=== PATIENT | male | born 1950 | race Caucasian/White ===

== ENCOUNTER 2024-11-01 06:55 | Day surgery (SDC) | payer OTHER, SELFPAY ==
[2024-11-01] VITALS (15 sets, daily range): BP systolic 102–138; BP diastolic 61–88; BMI 25.8
[2024-11-01] MEDS: LOW STRENGTH ASPIRIN 324 MG PO (07:46)
--- NOTE | 2024-11-01 09:26 | ITS.CL.CATH ---
Underwriting Operations Manager - Catheterization
Cardiac Catheterization
Procedure Report:
LEFT HEART CATHETERIZATION
Date of Procedure: November 01, 2024
Primary Care Physician: Dr. Eliezer Woods
Primary Reinforcement Maker: Dr. Enrique Cardoso
Procedures performed:
1: Coronary angiography
2: Left ventricular hemodynamic assessment
3: Left ventriculography
INDICATION: The patient is a 74-year-old man with a past medical history significant for COPD and atrial fibrillation who was admitted to [facility] earlier this month with increasing weakness and shortness of breath in the setting of atrial
fibrillation with rapid ventricular response. Echo performed on October 16 showed severe LV systolic dysfunction with a visually estimated ejection fraction of 25 to 30%, LV dilation, severe left atrial dilation, and combined aortic valve disease
with mild aortic regurgitation and at least mild to moderate aortic stenosis. In light of his drop in EF and new heart failure he is referred for coronary angiography. [facility] was held for the procedure. He reports feeling much better. He has no
typical angina despite working a fairly physical job.
ACCESS: The patient was prepped and draped in usual sterile fashion. A 6 Bahamian sheath was placed in the right radial artery using the Seldinger over the wire technique.
HEMODYNAMIC FINDINGS (mmHg):
LV(s/d,EDP): 124/8, 14
Ao(s/d,m): 100/62, 78
VALVE HEMODYNAMICS with simultaneous pressure measurement:
Aortic Valve
peak to peak gradient (mmHg): 28
mean gradient (mmHg): 23
ANGIOGRAPHIC FINDINGS:
Single-plane Left Ventriculography performed in the JONES projection: Severe global LV systolic dysfunction with a visually estimated ejection fraction of 30 to 35%. The left ventricle appears dilated. There is no significant mitral regurgitation.
Heavy calcification of the aortic valve is noted.
Coronary Angiography:
Dominance: Right
Left Main: Left main coronary artery was engaged with a 6 Bahamian JL 4. This seems to have a very anterior takeoff. The left main is widely patent.
Left Anterior Descending: The left anterior descending artery is a medium to large caliber vessel that gives rise to 2 relatively large diagonal branches. These vessels appear widely patent with mild luminal irregularities and no focal obstructive
disease.
Left Circumflex: The left circumflex is a medium caliber vessel that gives rise to 2 major obtuse marginal branches. There is a smooth 40 to 50% stenosis in the mid circumflex just before the takeoff of the first obtuse marginal branch. OM1 is a
large-caliber vessel that is widely patent. The circumflex terminates in a smaller second obtuse marginal branch that is also widely patent with normal flow.
Right Coronary: The right coronary artery is a medium caliber dominant vessel that gives rise to a large caliber posterior descending artery and small PLV branch system. The right coronary artery is moderately calcified throughout the AV groove.
There are 2 tandem smooth 40 to 50% stenoses in the mid RCA. The distal vessels appear angiographically normal with normal flow.
Fluoroscopy Time (min): 11.3
Radiation Dose (mGy): 584
DAP (Gy.cm2): 43
Closure device: None. A TR band applied at the right wrist.
Complications: None
ASSESSMENT:
1: Two-vessel nonobstructive coronary artery disease.
2: Severe LV systolic dysfunction with fairly compensated filling pressures.
3: At least moderate and possibly severe aortic stenosis with low gradients in the setting of severely depressed ejection fraction.
CONCLUSIONS and RECOMMENDATIONS:
1: Formal evaluation by the [facility] valve team for possible TAVR. His gradients are certainly fairly low however the combination of aortic insufficiency in the setting of LV dysfunction with LV dilation makes me concerned that the valve may be
playing more of a role in his clinical presentation. Certainly atrial fibrillation is also playing a major role. He certainly is feeling better back in normal sinus rhythm today and has fairly well compensated filling pressures on medical therapy.
2: Close clinical follow-up with Dr. Cardoso as scheduled.
Theo Felix M.D.
Copy to: Dr. Eliezer Woods
--- NOTE | 2024-11-01 11:37 | CONSULT.STRU ---
Consultation
-
Date/Time Consultation Requested: 11/01/2024
Date/Time Consultation Performed: 11/01/2024
Requesting Provider: Dr. Felix
Performing Provider: SADE Vazquez
Reason for Consultation: Aortic stenosis, low flow-low gradient/ TAVR evaluation
Patient History
Physicians
Family Physician: Dr. Eliezer Woods
Outpatient Mechanical Equipment Sales Engineer: Dr. Enrique Cardoso
Primary Mechanical Equipment Sales Engineer: Dr. Enrique Cardoso
History of Present Illness
Mr. Lee has a hx of PAF, cardiomyopathy (10/16/2024 echo with LVEF 25-30%), COPD, BPH and HLD. He had a recent admission to [facility] 10/14/24-10/16/24 for PAF with RVR@127 bpm in the setting of URI and severe diarrhea. He went back into [facility] 10/16/24.
Since that admission he feels LISA with walking, though feels improved compared to the time of hospitalization. Otherwise denies CP, palpitations, lightheadedness, LE edema, PND or orthopnea. Prior to his recent hospitalization he was very active. He
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 His most recent echo from 10/16/2024 had AV PG/M.1/17.7, DILMA: 0.66 with dimensionless index of 0.21. He has mild AI
and mild MR. EF is 25-30%. He underwent cardiac cath today and was founf ro have a peak to peak MG of 28 and two vessel non-obstructive CAD.
Reviewed the pathophysiology of aortic stenosis with the patient and his . Explained the treatment options of SAVR and TAVR. Explained the TAVR evaluation process including follow up BMP, CT TAVR scan, CT surgery consult and Heart Team
discussion. Provided with script for BMP next week, script and appointment for CT TAVR, Consult appointment with Dr. Barbosa and a copy of the TAVR education booklet with contact information. Allowed for and answered questions.
Past Medical History
Past Medical History: Atrial Fib (paroxysmal), BPH (h/o radiation treatment), CHF (combined systolic and diastolic), COPD, LISA, Hypercholesterolemia, Radiation (prostate), Valvular Disease (Aortic stenosis, mild AI, moderate MAC, mild MR) and Other
(cardiomyopathy, abdominal hernia)
Past Surgical History
Past Surgical History: Other (lap. hernia repair, small bowel resection, history of bilateral inguinal hernia repair)
Dental History
Regular dental care, Dr. Sanchez in [place], [place]. Last visit this week.
Family History
Mother: at Age (92yo, brain aneurysm)
Father: at Age (88yo, CVA)
Social History
Alcohol: Occasional
Drug: None
Tobacco: Former Smoker
Personal:
Living: With Spouse
Employment: Employed (mechanical maintenance technician)
Allergies
Allergy/AdvReac Type Severity Reaction Status Date / Time
No Known Allergies Allergy Unverified 11/01/24 07:25
Home Medications
�Medication �Instructions �Recorded �Confirmed �Type
acetaminophen 325 mg capsule 650 mg PO Q4H PRN pain 11/01/24 11/01/24 History
albuterol sulfate 90 mcg/actuation 1 puff inhalation ONCE 11/01/24 11/01/24 History
aerosol inhaler
apixaban 5 mg tablet (Eliquis) 5 mg PO BID 11/01/24 11/01/24 History
atorvastatin 10 mg tablet 10 mg PO DAILY 11/01/24 11/01/24 History
dextromethorphan-guaifenesin 30 2 tab PO Q12H 11/01/24 11/01/24 History
mg-600 mg tablet extended
hr (Mucinex DM)
fluticasone furoate 200 1 inh inhalation DAILY 11/01/24 11/01/24 History
mcg-vilanterol 25 mcg/dose
inhalation powder
furosemide 40 mg tablet 40 mg PO DAILY 11/01/24 11/01/24 History
metoprolol succinate 25 mg 25 mg PO BID 11/01/24 11/01/24 History
tablet,extended release 24 hr
pantoprazole 20 mg tablet,delayed 20 mg PO DAILY 11/01/24 11/01/24 History
release
spironolactone 25 mg tablet 25 mg PO DAILY 11/01/24 11/01/24 History
tamsulosin 0.4 mg capsule 0.4 mg PO DAILY 11/01/24 11/01/24 History
STS%
STS %: 1.57%
Review of Systems
-
History Source: Patient and Family
General: Reports Weight Loss (18 pounds since recent hospitalization); Denies Fever or Fatigue
HEENT: Reports No Symptoms
Respiratory: Reports LISA (since recent hospitalization earlier this month)
Cardiac: Reports CAD and Known Vascular Disease (aortic stenosis); Denies Chest Pain, Palpitations, Nausea, Vomiting or Edema
Abdomen/GI: Reports Diarrhea (recent requiring hospitalization but none since discharge) and Other (large abdominal hernia)
: Reports No Symptoms; Denies Dysuria, Frequency, Urgency or Hematuria
Musculoskeletal: Reports No Symptoms; Denies Edema
Skin: Reports No Symptoms
Neurological: Reports Dizzy (says he has orthostatic hypotension); Denies CVA, TIA or Headaches
Vascular: Reports No Symptoms; Denies Claudication
Physical Exam
Vital Signs
Temp 97.8 F 11/01/24 07:49
Temp route: Oral 11/01/24 07:49
Pulse 88 11/01/24 07:49
Resp Rate 20 11/01/24 07:49
Blood pressure 138/88 11/01/24 07:49
Blood pressure extremity used: Left upper arm 11/01/24 09:32
Position: Lying 11/01/24 09:02
SaO2 98 11/01/24 07:49
Oxygen Mode of Delivery Room air 11/01/24 10:47
Can the patient verbally communicate their pain? Yes 11/01/24 10:47
Actual Weight 83.915 kg 11/01/24 07:12
Body Mass Index (BMI) 25.8 11/01/24 07:12
Labs
10/16/2024 [facility]:
WBC: 8.3
H/H: 13.2/39.1
Platelets: [id number]
BUN: 13
Creat: 0.84
GFR: 90
Diagnostic Studies
10/14/2024 Echocardiogram ([facility]):
SUMMARY
1. Left ventricular ejection fraction, by visual estimation, is 25 to 30%.
2. Estimated left ventricular ejection fraction is moderately reduced.
3. Moderately increased left ventricular internal cavity size by (5.98 cm/ 2.93 cm/m2).
4. Mild concentric left ventricular hypertrophy.
5. Grade 2 LV diastolic dysfunction, pseudonormal pattern.
6. Right ventricular cavity size is borderline dilated with normal systolic function. (TAPSE 2.1 cm).
7. Severely dilated left atrium by volume index 51.1 mL/m2.
8. Normal right atrium by area 16.9 cm2.
9. Right atrial pressure of (8 mmHg), the estimated right ventricular systolic pressure is normal at (25.9 mmHg).
10. Inferior vena cava normal in size (>2.1 cm) + greater than 50% variably consistent with elevated right atrial pressures (8 mmHg).
11. Mild aortic valve stenosis. Mild aortic regurgitation.
12. AoV velocity of 2.70 m/s; Peak aortic valve gradient = 29.1 mmHg; Mean gradient = 17.7 mmHg; AoV Area by continuity equation = 0.66 cm2; AoV Dimensionless Index = 0.21.
13. There is severe thickening of the posterior leaflet of the mitral valve. Moderate mitral annular calcification.
14. Mild mitral valve regurgitation is seen.
15. Compared to prior 01-18-, LVEF is slightly worse.
16. Multiple segmental abnormalities exist. See findings.

PHYSICIAN INTERPRETATION
Left Ventricle:
Definity Intravenous contrast was given for enhancement of the left ventricular endocardial borders. The left ventricular internal cavity size was moderately increased. There is mild concentric left ventricular hypertrophy. The estimated left
ventricular ejection fraction is moderately reduced. There was Grade 2 LV diastolic dysfunction, pseudonormal pattern. Left ventricular ejection fraction, by visual estimation, is 25 to 30%.
LV Wall Scoring:
The entire anterior wall is akinetic. The RCA distribution, entire lateral
wall, entire septum, and apex are hypokinetic.
Right Ventricle:
The right ventricular cavity size is borderline dilated. The right ventricular systolic function is within normal limits. The tricuspid regurgitant velocity predicts an estimated right ventricular systolic pressure of 25.9 mmHg.
Left Atrium:
The left atrium is severely dilated by volume index 51.1 mL/m2.
Right Atrium:
Right atrium is normal by area 16.9 cm2.
Inferior vena cava normal in size (>2.1 cm) + greater than 50% variably consistent with elevated right atrial pressures (8 mmHg).
Interatrial Septum:
Interatrial and interventricular septa appear intact, with no obvious evidence of intracardiac shunting by spectral or color Doppler.
Aortic Valve:
Doppler findings and somewhat restricted movement of the aortic valve cusps are consistent with mild aortic stenosis. The peak aortic valve gradient is 29.1 mmHg. The mean aortic valve gradient is 17.7 mmHg. The peak aortic velocity was obtained
from the apical view. There is mild aortic regurgitation.
Mitral Valve:
There is moderate mitral annular calcification. There is severe thickening of the posterior leaflet of the mitral valve. The mean mitral valve gradient is 4.2 mmHg. The calculated mitral valve area is 6.10 cm�, using a pressure half-time of 36
msec. Mild mitral valve regurgitation is seen.
Tricuspid Valve:
There is mild tricuspid valve regurgitation. The tricuspid regurgitant velocity is (2.12 m/s), and with an assumed right atrial pressure of (8 mmHg), the right ventricular systolic pressure is normal (25.9 mmHg).
Pulmonary Valve:
The pulmonary valve is normal in structure and function, with good leaflet excursion, and without any evidence of pulmonary stenosis or significant regurgitation.
Aorta:
The aorta, from all segments that were visualized, appears normal in dimension, with no evidence of dilatation or obstruction. Aortic sinus (3.72 cm/ BSA indexed 1.8 cm/m2), Aortic ST junct (3.6 cm/ BSA indexed 1.7 cm/m2),.
11/01/2024 Cardiac Cath:
HEMODYNAMIC FINDINGS (mmHg):
LV(s/d,EDP): 124/8, 14
Ao(s/d,m): 100/62, 78
VALVE HEMODYNAMICS with simultaneous pressure measurement:
Aortic Valve
peak to peak gradient (mmHg): 28
mean gradient (mmHg): 23
ANGIOGRAPHIC FINDINGS:
Single-plane Left Ventriculography performed in the JONES projection: Severe global LV systolic dysfunction with a visually estimated ejection fraction of 30 to 35%. The left ventricle appears dilated. There is no significant mitral regurgitation.
Heavy calcification of the aortic valve is noted.
Coronary Angiography:
Dominance: Right
Left Main: Left main coronary artery was engaged with a 6 Greek JL 4. This seems to have a very anterior takeoff. The left main is widely patent.
Left Anterior Descending: The left anterior descending artery is a medium to large caliber vessel that gives rise to 2 relatively large diagonal branches. These vessels appear widely patent with mild luminal irregularities and no focal obstructive
disease.
Left Circumflex: The left circumflex is a medium caliber vessel that gives rise to 2 major obtuse marginal branches. There is a smooth 40 to 50% stenosis in the mid circumflex just before the takeoff of the first obtuse marginal branch. OM1 is a
large-caliber vessel that is widely patent. The circumflex terminates in a smaller second obtuse marginal branch that is also widely patent with normal flow.
Right Coronary: The right coronary artery is a medium caliber dominant vessel that gives rise to a large caliber posterior descending artery and small PLV branch system. The right coronary artery is moderately calcified throughout the AV groove.
There are 2 tandem smooth 40 to 50% stenoses in the mid RCA. The distal vessels appear angiographically normal with normal flow.
ASSESSMENT:
1: Two-vessel nonobstructive coronary artery disease.
2: Severe LV systolic dysfunction with fairly compensated filling pressures.
3: At least moderate and possibly severe aortic stenosis with low gradients in the setting of severely depressed ejection fraction.
CONCLUSIONS and RECOMMENDATIONS:
1: Formal evaluation by the [facility] valve team for possible TAVR. His gradients are certainly fairly low however the combination of aortic insufficiency in the setting of LV dysfunction with LV dilation makes me concerned that the valve may be
playing more of a role in his clinical presentation. Certainly atrial fibrillation is also playing a major role. He certainly is feeling better back in normal sinus rhythm today and has fairly well compensated filling pressures on medical therapy.
2: Close clinical follow-up with Dr. Cardoso as scheduled.
Exam
General: Well Developed, Well Nourished, No Apparent Distress and Comfortable
HEENT: Moist Mucous Membranes, PERRLA and EOMI
Neck: Trachea Midline; Negative JVD
Respiratory: Clear; Negative Wheezes, Crackles or Rhonchi
Cardiac: S1/S2 and Regular Rhythm
GI: Soft, Non Tender, Normal Bowel Sounds and Other (large abdominal hernia)
Rectal: Deferred by Provider
Skin: Warm and Dry
Neuro: AO x 3, No Motor Deficits and Nonfocal/Grossly Intact
Extremities: Pulses (+2 PT pulse, +1 dp pulse bilaterally); Negative Lower Level Edema
Psych: Calm
Assessment / Plan
-
Procedure Type:�Isolated AVR
Perioperative Outcome Estimate %
Operative Mortality 1.57%
Morbidity & Mortality 8.34%
Stroke 0.965%
Renal Failure 1.06%
Reoperation 3.76%
Prolonged Ventilation 4.52%
Deep Sternal Wound Infection 0.051%
Long Hospital Stay (>14 days) 5.46%
Short Hospital Stay (<6 days)* 36.6%
Severe Aortic stenosis:
����������� Continue evaluation for aortic stenosis as outpatient
����������� BMP next week
����������� CT TAVR scan 11/16/2024 at
����������� CT surgery consult with Dr. Barbosa 11/21/2024
����������� Dental Clearance
����������� Heart team discussion at [facility]
Data Reviewed
-
EKG: Report Reviewed by me
Ornamental Brick Installer: Report Reviewed by me, Discussed with Physician, Discussed with Patient and Discussed with Family
Echo: Report Reviewed by me, Discussed with Physician, Discussed with Patient and Discussed with Family
Labs: Labs Reviewed by me
Old Records: Reviewed (Cardiology notes)
Total Time Spent with Patient (in minutes): 30
== END 2024-11-01 12:22 | disposition home or self-care (01) ==
LOC: CATH 06:55
PROVIDERS: ATTENDING PHYSICIAN Internal Medicine Interventional Cardiology; FAMILY PHYSICIAN Family Medicine; OTHER PHYSICIAN Internal Medicine Cardiovascular Disease
DX: I08.3 Combined rheumatic disorders of mitral, aortic and tricuspid valves (principal); I25.10 Atherosclerotic heart disease of native coronary artery without angina pectoris; N40.0 Benign prostatic hyperplasia without lower urinary tract symptoms; J44.9 Chronic obstructive pulmonary disease, unspecified; I42.9 Cardiomyopathy, unspecified; I48.0 Paroxysmal atrial fibrillation; Z90.49 Acquired absence of other specified parts of digestive tract; E78.00 Pure hypercholesterolemia, unspecified; I50.40 Unspecified combined systolic (congestive) and diastolic (congestive) heart failure; Z87.891 Personal history of nicotine dependence; Z82.3 Family history of stroke; Z79.01 Long term (current) use of anticoagulants; Z79.899 Other long term (current) drug therapy
CPT/HCPCS: 93458; C1769; C1894; Q9967

== ENCOUNTER → 2024-11-16 08:53 | Outpatient (REF) | payer OTHER, SELFPAY | LOC: RAD 08:53 | PROVIDERS: ATTENDING PHYSICIAN Nurse Practitioner Adult Health; FAMILY PHYSICIAN Family Medicine | DX: I35.0 Nonrheumatic aortic (valve) stenosis (principal) | CPT/HCPCS: 74174; 75572; Q9967 ==

== ENCOUNTER 2025-02-01 05:00 | Inpatient (IN) | payer OTHER, SELFPAY ==
[2025-01-23 08:38] VITALS: BMI 28.6
--- NOTE | 2025-01-23 09:00 | HPS.HSE ---
Family Physician
-
Family Physician: Eliezer Woods
Cardiology: Enrique Cardoso
Chief Complaint
-
LISA
Pre-operative history and physical
History of Present Illness
Mr. Lee is a pleasant 74 yom with a past medical history significant for , PAF, cardiomyopathy (10/16/2024 echo with LVEF 25-30%), COPD, BPH and HLD. He had a recent admission to [facility] 10/14/24-10/16/24 for PAF with RVR@127 bpm in the setting of URI
and severe diarrhea. He went back into [facility] 10/16/24. Since that admission he feels mild LISA with walking, though feels improved compared to the time of hospitalization. He also has noticed some increased fatigue but has been trying to stay active.
Otherwise denies CP, palpitations, lightheadedness, LE edema, PND or orthopnea. Prior to his recent hospitalization he was very active. 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
with no symptoms. His most recent echo from 10/16/2024 is notable for �AV PG/M.1/17.7, DILMA: 0.66 with dimensionless index of 0.21, mild AI and mild MR. EF is 25-30%. He underwent cardiac catheterization on 11/01/2024 and was found to have an
invasive peak to peak MG of 28 and two vessel non-obstructive CAD
Medical History
Past Medical History
Past Medical History: Reports Arrhythmia (paroxysmal a-fib), Cancer (prostate), COPD and Valvular Disease (severe , mild AI, mild MR, mild TR)
Past Surgical History: Reports Other (small bowel resection, lap hernia repair 2018, bilateral inguinal hernia repair 2008)
Social History
Tobacco: Former Smoker
Alcohol: Occasional
Drug: None
Personal:
Living: With Family
Employment: Employed (helper maintenance cleaning)
Family History
Family History: Not pertinent
Allergies / Home Medications
Allergies reflects when Allergies were last updated in [employer].
Home Medications with original date entered in [employer]
Allergy/Medication List:
Allergies:
NKDA
Medications:
Albuterol Sulfate HFA 108 (90 Base) MCG/ACT Aerosol Solution 1 puff as needed Inhalation every 4 hrs
Apixaban 5 MG Tablet 1 tablet Orally Twice a day
Atorvastatin Calcium 10 MG Tablet 1 tablet Orally Once a day
Breo Ellipta(Fluticasone Furoate-Vilanterol) 200-25 MCG/ACT Aerosol Powder Breath Activated 1 puff Inhalation Once a day
Metoprolol Succinate ER 25 MG Tablet Extended Release 24 Hour 1 tablet Orally Once a day
Metoprolol Succinate ER 25 MG Tablet Extended Release 24 Hour 1 tablet Orally twice a day
Mucinex(guaiFENesin ER) 600 MG Tablet Extended Release 12 Hour 1 tablet as needed Orally every 12 hrs
Pantoprazole Sodium 20 MG Tablet Delayed Release 1 tablet Orally Once a day
Spironolactone 25 MG Tablet 1 tablet Orally
Tamsulosin HCl 0.4 MG Capsule 1 capsule Orally Once a day
Review of Systems
-
History Source: Patient
Constitutional: Reports Fatigue (mild)
EENT: Reports No Symptoms
Respiratory: Reports Cough (only in morning, productive with kelly mucous.)
Cardiac: Reports No Symptoms; Denies Chest Pain, Palpitations or Syncope
Abdomen/GI: Reports No Symptoms; Denies Abdominal Pain, Nausea or Vomiting
: Reports No Symptoms; Denies Dysuria
Musculoskeletal: Reports No Symptoms
Skin: Reports No Symptoms
Neurological: Reports No Symptoms
Endocrine: Reports No Symptoms
Hematologic/Lymphatic: Reports No Symptoms
Psych: Reports No Symptoms
Physical Exam
Physical Exam
General: Well Developed, Well Nourished and No Apparent Distress
HEENT: NormoCephalic and PERRLA
Respiratory: Clear; No Wheezes, Rales or Rhonchi
Cardiac: S1/S2, Regular Rhythm and Murmur (Grade I/ JUNO); No Peripheral Edema
Breast: Deferred by me
GI: Soft, Non Tender, Non Distended and Normal Bowel Sounds
Rectal: Deferred by Provider
Genito-urinary: Deferred by me
Musculoskeletal: No Clubbing, No Cyanosis and No Edema
Skin: Warm and Dry
Neuro: AO x 3 and Nonfocal/grossly intact
Psych: Calm
Data Reviewed
-
Diagnostic Radiology: Report Reviewed by me
CT Scan: Report Reviewed by me and Discussed with Physician
Medical Tests (Nuc Med, Echo, EKG etc): Report Reviewed by me
Lab Data: Labs Reviewed by me
Old Records: Reviewed
Impression/Plan
-
IMPRESSION:
Severe Aortic Stenosis
PLAN:
- TF TAVR utilizing 29mm S3 valve
- Last dose of Eliquis 01/29, ASA 324mg 01/30, 81mg 01/31, 02/01. Will resume Eliquis post procedure
- POD #1/#30 echocardiogram
- Cardiac rehab consult
- Prophylactic abx with dental procedure, regular dental care
Labs
-
Labs:
WBC 7.8 10^3/uL (4.8-10.8) 01/23/25 08:56
RBC 4.91 10^6/uL (4.70-6.10) 01/23/25 08:56
Hgb 15.0 g/dL (13.0-18.0) 01/23/25 08:56
Hct 43.4 % (39.0-52.0) 01/23/25 08:56
Plt Count 207 10^3/uL (130-400) 01/23/25 08:56
Sodium 140 mmol/L (135-145) 01/23/25 08:56
Potassium 4.1 mmol/L (3.5-5.1) 01/23/25 08:56
Chloride 105 mmol/L (98-107) 01/23/25 08:56
Carbon Dioxide 30 mmol/L (22-30) 01/23/25 08:56
BUN 14 mg/dl (9-20) 01/23/25 08:56
Creatinine 0.8 mg/dL (0.7-1.3) 01/23/25 08:56
eGFR > 60.00 01/23/25 08:56
Glucose 87 mg/dl (70-99) 01/23/25 08:56
Calcium 9.4 mg/dl (8.4-10.2) 01/23/25 08:56
Xkw-T-Trrvrpzfhmg Pept 3370 pg/ml 01/23/25 08:56
Albumin 4.3 g/dl (3.5-5.0) 01/23/25 08:56
[2025-01-23 09:23] LABS: % Basophils 0.5 % (0-2); % Eosinophils 1.4 % (0-6); % Immature Granulocytes 0.8 % (0-0.5); % Lymphocytes 15.9 % (20.5-51.1); % Monocytes 8.8 % (1.7-9.3); % Neutrophils 72.6 % (42.2-75.2); Absolute Eosinophils 0.1 10^3/uL (0-0.7); Absolute Immature Granulocytes 0.1 10^3/uL (0-0.05); Absolute Lymphocytes 1.2 10^3/uL (1.2-3.4); Absolute Monocytes 0.7 10^3/uL (0.1-0.6); Absolute Neutrophils 5.6 10^3/uL (1.4-6.5); Hematocrit 43.4 % (39.0-52.0); Mean Corp Hgb Conc. 34.6 g/dL (33.0-37.0); Mean Corpuscular Hgb 30.5 pg (27.0-31.0); Mean Corpuscular Volume 88.4 fL (80.0-94.0); Mean Platelet Volume 10.1 fL (7.4-10.4); Nucleated Red Blood Cells % 0 % (-); Platelet Count 207 10^3/uL (130-400); Red Blood Cell Count 4.91 10^6/uL (4.70-6.10); Red Cell Dist. Width 13.4 % (11.5-14.5); White Blood Cell Count 7.8 10^3/uL (4.8-10.8)
[2025-01-23 09:28] LABS: Urine Albumin Negative (Neg - Trace); Urine Bilirubin Negative (Negative); Urine Character Clear (Clear); Urine Color Yellow; Urine Glucose Negative (Negative); Urine Ketone Negative (Negative); Urine Leukocyte Negative (Negative); Urine Nitrite Negative (Negative); Urine Occult Blood Negative (Negative); Urine Urobilinogen Negative (Neg - 1+); Urine pH 6.5 (5.0-9.0)
[2025-01-23 09:43] LABS: INR 1.04; PT 14.1 Sec (11.4-14.6)
[2025-01-23 09:44] LABS: APTT 30.5 Sec (23.4-35.0)
[2025-01-23 09:48] LABS: ALT (SGPT) 18 U/L (0-50); AST (SGOT) 24 U/L (17-59); Albumin 4.3 g/dl (3.5-5.0); Alkaline Phosphatase 66 U/L (38-126); Blood Urea Nitrogen 14 mg/dl (9-20); Calcium 9.4 mg/dl (8.4-10.2); Carbon Dioxide 30 mmol/L (22-30); Chloride 105 mmol/L (98-107); Direct Bilirubin 0.1 mg/dl (0.0-0.4); Estimated Creatinine Clearance 81 ml/min; Glucose 87 mg/dl (70-99); Potassium 4.1 mmol/L (3.5-5.1); Sodium 140 mmol/L (135-145); Total Bilirubin 0.9 mg/dl (0.2-1.3); Total Protein 6.9 g/dl (6.3-8.2); eGFR > 60.00
[2025-01-23 09:51] LABS: NT-proBNP 3370 pg/ml
[2025-01-23 09:59] LABS: Glycohemoglobin (HgbA1c) 5.4 % (4.0-5.6)
--- NOTE | 2025-01-23 10:20 | CM ---
Met with Mr. Lee in [facility]'s. He states prior to admission he resides with his spouse in a one story home with a ramp to enter. He states prior to admission he was independent with ambulation and ADLS's. He states he does not have any DME in the
home. He states he has a prescription plan and uses [facility]. He states his spouse will be home to assist in his care if needed. The discharge plan is to return home with his spouse and a home visit by the Transitional Care Nurse when medically
stable.
We reviewed pre-op and post-op routines. We reviewed the shower instructions. He has the soap, written instructions and the TAVR Educational Booklet. We also reviewed restrictions including lifting and driving restrictions. We also discussed a
home visit by the Transitional Care Nurse. He is agreeable to a home visit. The plan is for TAVR on January,.
[2025-02-01] VITALS (19 sets, daily range): BP systolic 92–146; BP diastolic 66–97; BMI 27.8
--- NOTE | 2025-02-01 06:37 | W.CVOR.SURPR ---
CVOR Surgeon Immed Pre Op
-
I have examined this patient prior to performance of the scheduled procedure.
The patient's condition is unchanged from the time of the dictated/written History and
Physical and the patient is able to undergo the scheduled procedure.
[2025-02-01] MEDS: ANCEF 10 IV ×2 (07:39)
[2025-02-01 08:22] LABS: ACT-LR - POC 290 Seconds (116-155)
--- NOTE | 2025-02-01 08:44 | W.IMMPOSTOP ---
Surgical Immed Post Op Note
-
[id number]
STRUCTURAL HEART PROCEDURE NOTE: TAVR
Preoperative Dx:
Severe aortic stenosis (P/M: 29.1/17.7; mean increased to 50mmHg w/ DSE; DILMA 0.66)
Reduced LVEF @ 25-30%
PAF
COPD
Prostate CA s/p Rx
B/L inguinal hernia repairs
Strangulated femoral hernia repair w/ SBR
Postoperative Dx:
Same
[id number], combined systolic/diastolic CHF w/ elevated LVEDP @ 25mmHg
Procedures:
1) L MATTRESS SPECIALIST access w/ tactile, U/S, and fluoroscopic guidance, micropuncture technique, limited angiography, 6Fr sheath placement
2) L CFV access w/ U/S and fluoroscopic guidance, long 6Fr sheath placement
3) R MATTRESS SPECIALIST access w/ tactile, U/S, and fluoroscopic guidance, micropuncture technique, limited angiography, 6Fr sheath placement
4) Placement of temporary RV pacing wire, threshold testing
5) Placement of pigtail catheter in RCC w/ limited aortography x 2 w/ confirmation of co-planar valve deployment angles
6) Placement of perclose sutures x 2 into R MATTRESS SPECIALIST; 8Fr sheath placement
7) Placement of Lugo E-sheath via R MATTRESS SPECIALIST (systemic heparinization)
8) Wire purchase across stenotic AV (AL-1, soft-tip straight, LVEDP assessment, extra-stiff wire)
9) R TF TAVR w/ placement of 29mm DAHLIA 3 valve (+1)
10) Completion aortography (90/10; no AI)
11) Completion TTE (mean gradient 5-6mmHg, no AI/PVL)
12) Removal of valve delivery system & Lugo E-sheath w/ R MATTRESS SPECIALIST mgmt w/ perclose sutures x 2; manual pressure
13) Completion R ileofemoral angiography
14) Removal of temporary pacing wire
15) Removal of L MATTRESS SPECIALIST 6Fr sheath w/ mgmt w/ 6Fr angioseal; manual pressure (protamine)
16) Removal of L CFV 6Fr sheath w/ mgmt w/ manual pressure
Single Corner Cutter:
Dr. Enrique Buckley
Cardiac Surgeon:
Dr. Jean Barbosa
Anesthesia:
MAC & local to B/L groins
Implants:
Lugo [employer]; DAHLIA 3, 29mm RESILIA valve; [id number]
Perclose x 2 to R MATTRESS SPECIALIST
6Fr angioseal x 1 to L MATTRESS SPECIALIST
Cath Data:
Start: 0748hrs, Deploy: 0823hrs, End: 0840hrs
FT: 8.5min, mGy: 465.20; DAP: 43.4042, Contrast: 93mL
Post-TTE: mean gradient 5 to 6mmHg, no AI/PVL
Complications:
None
Condition:
Stable/guarded to recovery
--- NOTE | 2025-02-01 08:52 | ITS.CL.TAVR ---
Addendum entered and electronically signed by Enrique Buckley MD 02/01/25 15:31:
ADDENDUM: I inadvertently dictated that we implanted a 26 mm Lugo valve. It was actually a 29 mm Lugo MAMADOU S3 RESILIA valve
Garment Patternmaker - TAVR Report
TAVR PRocedure
Procedure Report:
TRANSCATHETER AORTIC VALVE REPLACEMENT
Date of Procedure: February 01, 2025
Referring: Dr. Enrique Cardoso
Operators: Drs. Enrique Buckley and Jean Barbosa
PROCEDURE PERFORMED:
1. Ultrasound guidance was utilized to obtain access in the left common femoral artery, left common femoral vein, and right common femoral artery
2. Successful placement of 29 mm Lugo Mamadou S3 aortic valve via right common femoral approach.
PREPROCEDURE NYHA CLASS: 3
DESCRIPTION OF PROCEDURE: The patient was referred for assessment of severe symptomatic aortic stenosis and following a comprehensive evaluation it was felt that transcatheter aortic valve replacement (TAVR) would be the most appropriate treatment.
Informed consent was obtained prior to the procedure. A 'time-out' was called and the procedural plan was verbally confirmed by anesthesia, surgery, perfusion, and laborer brush clearing staff.
Arterial was obtained in the left common femoral artery using ultrasound guidance and micropuncture technique. A 6 Fr sheath was inserted. Ultrasound guidance was then utilized to gain access into the left common femoral vein and a 6 Fr sheath was
inserted. Attention was then turned to the right common femoral artery. Ultrasound guidance was utilized and access was obtained in the right common femoral artery using ultrasound guidance. Angiography through the micropuncture sheath was
performed after access was obtained in both the right and left common femoral arteries. Both arteriotomy sites appeared appropriate for closure with vascular access closure devices.
A transvenous pacemaker wire was then advanced from the left common femoral vein to the right ventricular apex where excellent pacing thresholds were obtained.
The right common femoral arteriotomy site underwent preclosure using 2 Perclose devices and was followed by placement of an 8 [place] arterial sheath.
An angled pigtail catheter was then advanced through the left common femoral sheath and positioned in the proximal ascending thoracic aorta / right coronary cusp. Angiography was performed to define a coplanar angle facilitating positioning and
delivery of the TAVR device. JONES 14/CAU 12 appear to be a reasonable coplanar angle.
An AL-1 catheter was then advanced thought the right common femoral 8 Fr sheath and into the proximal descending thoracic aorta over 0.035' J-tipped guidewire. An Amplatz Extra-Stiff wire was then advanced to the proximal descending thoracic aorta.
The AL-1 catheter was removed and the supportive wire was utilized to facilitate delivery of the Lugo eSheath and dilator. Heparin, 7,000 units, was administered and the ACT was monitored throughout the procedure.
The AL-1 catheter was then readvanced through the Lugo eSheath. The 0.035' stiff wire was allowed to drift across the aortic arch and the AL1 was positioned just above the aortic valve. The stenotic leaflets were probed with a Soft-tip Straight
wire. The aortic leaflets were crossed and the AL-1 catheter followed the Soft-tip Straight wire to the mid left ventricle. The wire was removed. Left ventricular end-diastolic pressures was measured at 25 mmHg consistent with acute on chronic
combined systolic and diastolic heart failure.
An Amplatz Extra-Stiff wire with a generous curved tip was then advanced to the mid left ventricle. The AL-1 catheter was removed and the Amplatz wire was left in place in order to facilitate delivery of the Lugo delivery system. A 29 mm
Lugo MAMADOU S3 valve was brought to the table and the orientation of the valve on the balloon delivery system was confirmed by all operators. The MAMADOU S3 valve was advanced through the eSheath and into the proximal descending thoracic aorta.
The MAMADOU valve was centered on the delivery balloon and the entire system was retroflexed as across the aortic arch in an KAZAKH projection. The MAMADOU S3 delivery system was then advanced across the stenotic aortic leaflets. The pusher was
retracted. Angiography confirmed appropriate positioning of the valve and rapid pacing was undertaken. The 29 mm MAMADOU S3 valve was deployed during rapid pacing. Valve deployment was uneventful. Aortography following valve deployment suggested
no aortic insufficiency while the wire was still across the valve in the left ventricle.
The post valve deployment transthoracic echocardiogram was notable for a mean gradient of 10 mmHg.
The Lugo valve delivery system was removed. The Lugo eSheath was removed and the Perclose knots were advanced to the arteriotomy site with excellent hemostasis. Angiography after the Perclose knots were advanced to the arteriotomy site and
demonstrated good distal runoff.
A 6 [place] Angio-Seal was then utilized to obtain hemostasis in the left common femoral artery. The temporary pacemaker and 6 Fr sheath were removed and manual pressure was held over the 6 [place] femoral venous access.
Protamine was administered to reverse the intravenous anticoagulant.
Fluoro Time: 8.5 min, Dose: 465 mGy, DAP : 43.4 gy.cm2
CONCLUSIONS:
1. Severe symptomatic aortic stenosis. Successful deployment of a 29 mm MAMADOU S3 valve with a post valve deployment mean gradient of 10 mmHg
2. The right arteriotomy was closed with 2 Perclose devices and the left common femoral arteriotomy site was closed with a 6 [place] Angio-Seal
Copy to: Dr. Enrique Cardoso, Dr. Joseph Felix
Original Note:
Garment Patternmaker - TAVR Report
TAVR PRocedure
Procedure Report:
TRANSCATHETER AORTIC VALVE REPLACEMENT
Date of Procedure: February 01, 2025
Referring: Dr. Enrique Cardoso
Operators: Drs. Enrique Buckley and Jean Barbosa
PROCEDURE PERFORMED:
1. Ultrasound guidance was utilized to obtain access in the left common femoral artery, left common femoral vein, and right common femoral artery
2. Successful placement of 26 mm Lugo Mamadou S3 aortic valve via right common femoral approach.
PREPROCEDURE NYHA CLASS: 3
DESCRIPTION OF PROCEDURE: The patient was referred for assessment of severe symptomatic aortic stenosis and following a comprehensive evaluation it was felt that transcatheter aortic valve replacement (TAVR) would be the most appropriate treatment.
Informed consent was obtained prior to the procedure. A 'time-out' was called and the procedural plan was verbally confirmed by anesthesia, surgery, perfusion, and laborer brush clearing staff.
Arterial was obtained in the left common femoral artery using ultrasound guidance and micropuncture technique. A 6 Fr sheath was inserted. Ultrasound guidance was then utilized to gain access into the left common femoral vein and a 6 Fr sheath was
inserted. Attention was then turned to the right common femoral artery. Ultrasound guidance was utilized and access was obtained in the right common femoral artery using ultrasound guidance. Angiography through the micropuncture sheath was
performed after access was obtained in both the right and left common femoral arteries. Both arteriotomy sites appeared appropriate for closure with vascular access closure devices.
A transvenous pacemaker wire was then advanced from the left common femoral vein to the right ventricular apex where excellent pacing thresholds were obtained.
The right common femoral arteriotomy site underwent preclosure using 2 Perclose devices and was followed by placement of an 8 [place] arterial sheath.
An angled pigtail catheter was then advanced through the left common femoral sheath and positioned in the proximal ascending thoracic aorta / right coronary cusp. Angiography was performed to define a coplanar angle facilitating positioning and
delivery of the TAVR device. JONES 14/CAU 12 appear to be a reasonable coplanar angle.
An AL-1 catheter was then advanced thought the right common femoral 8 Fr sheath and into the proximal descending thoracic aorta over 0.035' J-tipped guidewire. An Amplatz Extra-Stiff wire was then advanced to the proximal descending thoracic aorta.
The AL-1 catheter was removed and the supportive wire was utilized to facilitate delivery of the Lugo eSheath and dilator. Heparin, 7,000 units, was administered and the ACT was monitored throughout the procedure.
The AL-1 catheter was then readvanced through the Lugo eSheath. The 0.035' stiff wire was allowed to drift across the aortic arch and the AL1 was positioned just above the aortic valve. The stenotic leaflets were probed with a Soft-tip Straight
wire. The aortic leaflets were crossed and the AL-1 catheter followed the Soft-tip Straight wire to the mid left ventricle. The wire was removed. Left ventricular end-diastolic pressures was measured at 25 mmHg consistent with acute on chronic
combined systolic and diastolic heart failure.
An Amplatz Extra-Stiff wire with a generous curved tip was then advanced to the mid left ventricle. The AL-1 catheter was removed and the Amplatz wire was left in place in order to facilitate delivery of the Lugo delivery system. A 26 mm
Lugo MAMADOU S3 valve was brought to the table and the orientation of the valve on the balloon delivery system was confirmed by all operators. The MAMADOU S3 valve was advanced through the eSheath and into the proximal descending thoracic aorta.
The MAMADOU valve was centered on the delivery balloon and the entire system was retroflexed as across the aortic arch in an KAZAKH projection. The MAMADOU S3 delivery system was then advanced across the stenotic aortic leaflets. The pusher was
retracted. Angiography confirmed appropriate positioning of the valve and rapid pacing was undertaken. The 26 mm MAMADOU S3 valve was deployed during rapid pacing. Valve deployment was uneventful. Aortography following valve deployment suggested
no aortic insufficiency while the wire was still across the valve in the left ventricle.
The post valve deployment transthoracic echocardiogram was notable for a mean gradient of 10 mmHg.
The Lugo valve delivery system was removed. The Lugo eSheath was removed and the Perclose knots were advanced to the arteriotomy site with excellent hemostasis. Angiography after the Perclose knots were advanced to the arteriotomy site and
demonstrated good distal runoff.
A 6 [place] Angio-Seal was then utilized to obtain hemostasis in the left common femoral artery. The temporary pacemaker and 6 Fr sheath were removed and manual pressure was held over the 6 [place] femoral venous access.
Protamine was administered to reverse the intravenous anticoagulant.
Fluoro Time: 8.5 min, Dose: 465 mGy, DAP : 43.4 gy.cm2
CONCLUSIONS:
1. Severe symptomatic aortic stenosis. Successful deployment of a 26 mm MAMADOU S3 valve with a post valve deployment mean gradient of 10 mmHg
2. The right arteriotomy was closed with 2 Perclose devices and the left common femoral arteriotomy site was closed with a 6 [place] Angio-Seal
Copy to: Dr. Enrique Cardoso, Dr. Joseph Felix
--- NOTE | 2025-02-01 08:54 | W.PN.UPDATE ---
Update Note
Progress Note Update
Reviewed Mr. Lee with the heart team in the preTAVR SDM meeting and confirmed a 29mm S3 via right transfemoral access. Patient will resume Eliquis post TAVR. LVEDP 21mmHg. #29mm S3 (serial# [id number]) successfully deployed via right TF access.
Post implant MG 6mmHg.
[2025-02-01] MEDS: LEVOPHED 250 IV (09:08)
--- NOTE | 2025-02-01 09:13 | CM ---
Addendum entered by CARLINE Verma 02/01/25 11:23:
Met w/ patient, spouse and 'dtr'/family friend at bedside.
Pt. reports that he is feeling well, however, reports that his daughter unexpectedly this AM. Emotional support provided. Pt. is anxious for DC to home tomorrow.
We reviewed DC plan for home w/ [facility] Transitional Care RN. Discussed post op MD appt., restrictions. Pt. requesting to be out of work longer than x1 wk. I advised him to discuss his concerns w/ MD.
Will cont. to follow.
Original Note:
Patient in OR today for planned TAVR procedure.
Reviewed initial assessment. Pt. resides w/ spouse in a private, [facility] with ramp access.
Pt. is functionally indep. at baseline w/ ADLs, mobility without the use of any assisted device.
Antic. DC plan is for home with [facility] Transitional [facility] RN.
CM to follow.
--- NOTE | 2025-02-01 10:45 | PTCARENOTE ---
Received pt from laboratory machinist post TAVR procedure. Pt AAOx3 and pleasant. NSR on the monitor. HR in the 70's. BP 108/79. Levophed gtt at 1mcg/min. pt denies chest pain or SOB. Right and left groin sites C.D.I. No bleeding or hematoma noted at this time.
Petechiae noted below b/l sites. pt informed of bedrest status and expected ambulation time. pt verbalizes understanding. Urinal provided. Call arango within reach.
[2025-02-01 10:47] LABS: ACT-LR - POC > 397 Seconds (116-155)
[2025-02-01] MEDS: ANCEF 5 IV (15:50)
[2025-02-01] MEDS: FLOMAX 0.4 MG PO (20:44)
[2025-02-01] MEDS: MUCINEX 1200 MG PO (20:44)
--- NOTE | 2025-02-02 01:56 | PTCARENOTE ---
Assumed care on pt at 1900, aaox3, SR on the monitor. HR in the 80-90's. pt denies chest pain or SOB. b/l groin sites CDI, no bleeding, bruising or hematoma noted. Some petechiae below b/l sites. BP stable. Call arango within reach, POC on going.
[2025-02-02 03:15] VITALS: BP 114/74
[2025-02-02 03:33] VITALS: BMI 27.8
--- NOTE | 2025-02-02 03:44 | W.PN.CT ---
Today's Communication / Plan
-
-POD#1
-no issues overnight
-review EKG with Cardiology
-obtain echo today
-discharge planning
Assessment / Plan
-
s/p R TF TAVR w/ placement of 29mm DAHLIA 3 valve POD#1
1. Severe aortic stenosis
2. Reduced left ventricular ejection fraction at 25%-30%.
3. Paroxysmal atrial fibrillation.
4. Chronic obstructive pulmonary disease.
5. Prostate carcinoma status post radiation.
6. Bilateral inguinal hernia repairs.
7. h/o Strangulated femoral hernia repair with small bowel resection.
Subjective
Procedure
s/p R TF TAVR w/ placement of 29mm DAHLIA 3 valve on 02/01/[address] Barbosa
-
Date of Service: February 02, 2025
Objective Data
-
Lab Results
02/02/25 03:22
02/02/25 03:22
PT 14.1 Sec (11.4-14.6) 01/23/25 08:56
INR 1.04 01/23/25 08:56
APTT 30.5 Sec (23.4-35.0) 01/23/25 08:56
Vital Signs
Vital Signs
Vital Signs
Temp Pulse Resp BP Pulse Ox
98.5 F 84 18 115/71 93
02/02/25 03:33 02/01/25 22:45 02/02/25 03:33 02/01/25 22:04 02/02/25 03:48
CT Intake/Output/Weight
02/01/25 02/01/25 02/02/25
06:59 18:59 06:59
Intake Total 1860 / 1860
Output Total 1025 / 1025
Balance 835 / 835
SaO2: 93
Physical Exam
-
General: AOx3
Cardiovascular: Regular rate & rhythm
Respiratory: Clear
Incision: Dressing Intact
Extremities: No Edema
[2025-02-02 04:17] LABS: Hematocrit 37.7 % (39.0-52.0); Hemoglobin 13.1 g/dL (13.0-18.0); Mean Corp Hgb Conc. 34.7 g/dL (33.0-37.0); Mean Corpuscular Hgb 30.3 pg (27.0-31.0); Mean Corpuscular Volume 87.3 fL (80.0-94.0); Platelet Count 162 10^3/uL (130-400); Red Blood Cell Count 4.32 10^6/uL (4.70-6.10); Red Cell Dist. Width 13.1 % (11.5-14.5); White Blood Cell Count 11.9 10^3/uL (4.8-10.8)
[2025-02-02 04:38] LABS: Blood Urea Nitrogen 15 mg/dl (9-20); Carbon Dioxide 27 mmol/L (22-30); Chloride 107 mmol/L (98-107); Estimated Creatinine Clearance 93 ml/min; Glucose 101 mg/dl (70-99); Potassium 3.9 mmol/L (3.5-5.1); Sodium 138 mmol/L (135-145); eGFR > 60.00
[2025-02-02] MEDS: KCL 20 MEQ PO (06:30)
[2025-02-02 08:35] VITALS: BP 121/76
--- NOTE | 2025-02-02 08:38 | W.PN.CARDCBS ---
Addendum entered and electronically signed by Андрей Pond MD 02/02/25 12:25:
I saw and examined the patient.
The Newcomer Hostess's note was reviewed and I agree with the note.
Comment: Briefly, 74-year-old man with history of heart failure with severely reduced ejection fraction, atrial fibrillation, and COPD who underwent TAVR on 02/01/2025 for severe aortic stenosis.
The patient was resting comfortably in the IVU this morning at the time my evaluation
Reports that he was ambulating the halls earlier today without significant symptoms
Maintaining sinus rhythm by my review of telemetry
QRS duration is not significantly changed from baseline; has known RBBB/LAFB.
Echo this a.m. with well-seated TAVR valve no significant aortic regurgitation
Stable for discharge from my perspective. Will follow-up with his primary surgical training specialist Dr. Cardoso.
Original Note:
Today's Communication / Plan
-
-ok for d/c and f/u with Dr Cardoso in 1 month as scheduled
Impression / Plan
-
PCP: Dr. Woods
Prim surgical training specialist: Dr Enrique Cardoso
Imp:
severe s/p TAVR w/ placement of 29 mm DAHLIA 3 valve 02/01/2025
Reduced left ventricular ejection fraction at 25%-30%.
Paroxysmal atrial fibrillation.
Chronic obstructive pulmonary disease.
Prostate carcinoma status post radiation.
Bilateral inguinal hernia repairs.
h/o Strangulated femoral hernia repair with small bowel resection.
Previous CV studies:
Echo 10/16/2024: EF 25-30%, �AV PG/M.1/17.7, DILMA: 0.66 with dimensionless index of 0.21, mild AI and mild MR.
Cardiac cath 11/01/2024: Two-vessel nonobstructive CAD, left circumflex 40 to 50% mid stenosis, RCA 40 to 50% mid stenosis, AV peak to peak 28 mmHg, mean 23 mmHg
Cardiac cath 02/01/2025 successful deployment of a 29 DAHLIA S3 valve with post valve deployment mean gradient 10 mmHg
Echo 02/01/2025: LVEF 30%, sapient 3 number 29 [address] Resilia valve in place and functioning well, mean gradient 6 mmHg
Plan:
- Postop day 1 status post TAVR
- EKG: Normal sinus rhythm with first-degree AV block and right bundle branch block, inferior infarct,
-telem personally reviewed: NSR 70-80s, 10 beat SVT
-Eliquis resumed post procedure
-cardiac rehab, at [facility]
-lifelong SBE prophylaxis s/p TAVR
-f/u with Dr Cardoso advised arranged for 03/02/2025. Pt is considering switching to DCA after initial post-TAVR f/u visit
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
Progress Note - Heel Sprayer
Subjective
Date of Service: February 02, 2025
-feels well POD 1 s/p TAVR
-maintaining NSR
post op echo pending
Objective
Labs:
02/02/25 03:22
02/02/25 03:22
Labs
Hgb 13.1 g/dL (13.0-18.0) 02/02/25 03:22
Hct 37.7 % (39.0-52.0) L 02/02/25 03:22
Plt Count 162 10^3/uL (130-400) 02/02/25 03:22
PT 14.1 Sec (11.4-14.6) 01/23/25 08:56
INR 1.04 01/23/25 08:56
APTT 30.5 Sec (23.4-35.0) 01/23/25 08:56
Sodium 138 mmol/L (135-145) 02/02/25 03:22
Potassium 3.9 mmol/L (3.5-5.1) 02/02/25 03:22
BUN 15 mg/dl (9-20) 02/02/25 03:22
Creatinine 0.7 mg/dL (0.7-1.3) 02/02/25 03:22
Glucose 101 mg/dl (70-99) H 02/02/25 03:22
Vital Signs and I&O:
Vital Signs
Temp Pulse Resp BP Pulse Ox
98.5 F 84 18 115/71 93
02/02/25 03:33 02/01/25 22:45 02/02/25 03:33 02/01/25 22:04 02/02/25 03:48
Vital Signs
Temp Pulse Resp BP Pulse Ox
98.5 F 84 18 115/71 93
02/02/25 03:33 02/01/25 22:45 02/02/25 03:33 02/01/25 22:04 02/02/25 03:48
Intake & Output
01/31/25 02/01/25 02/02/25 02/03/25
06:59 06:59 06:59 06:59
Intake Total 1860 / 1860
Output Total 1025 / 1025
Balance 835 / 835
Physical Exam
Physical Exam
GEN: No distress, awake, Ox3
HEENT: supple, anicteric, mmm
LUNGS: CTA, no wheezes/rales
CV: Reg, S1/S2, 1/6 syst LSB, no murmur
ABD: soft, BS+, NT/ND
EXT: No edema
NEURO: Gross non-focal
SKIN: No rash. B/L groin puncture sites covered with dressings
[2025-02-02] MEDS: SPIRIVA RESPIMAT 2.5 MCG 2 PUFF INH (08:40)
[2025-02-02] MEDS: SYMBICORT 160/4.5 MCG INHALER 2 PUFF INH (08:41)
[2025-02-02] MEDS: MUCINEX 1200 MG PO (08:46)
[2025-02-02] MEDS: PROTONIX 20 MG PO (08:46)
[2025-02-02] MEDS: LIPITOR 10 MG PO (08:47)
[2025-02-02] MEDS: VITAMIN C 500 MG PO (08:47)
[2025-02-02] MEDS: TOPROL XL 25 MG PO (08:47)
[2025-02-02] MEDS: ELIQUIS 5 MG PO (08:47)
[2025-02-02] MEDS: LASIX 40 MG PO (08:47)
--- NOTE | 2025-02-02 08:59 | W.DCSUMMARY ---
Discharge Summary
Discharge Data
Date of Admission: 02/01/25
Date of Discharge: 02/02/25
-
Pending Results: No
Hospital Course
Primary care physician: Eliezer Woods
Outpatient chief accounting officer: Enrique Cardoso
Inpatient consultants: [facility]
Procedures:
1. R TF TAVR #29mm Mamadou 3
Primary Diagnosis:
1. severe aortic stenosis
Secondary Diagnoses:
1. HFrEF (25-30%)
3. Paroxysmal atrial fibrillation on Eliquis
4. Chronic obstructive pulmonary disease
5. Prostate carcinoma status post radiation
6. Bilateral inguinal hernia repairs
7. Strangulated femoral hernia repair with small bowel resection
HPI: 74-year-old male was electively admitted on 02/01/25 for TAVR due to severe aortic stenosis
Hospital course: Patient underwent Right transfemoral TAVR #29mm MAMADOU 3 valve by Drs. Jean Barbosa and Enrique Buckley. Post procedure ECG noted sinus rhythm with chronic right bundle branch block. Bilateral groin sites were stable without
hematoma or bleeding. Patient was on low-dose Levophed while in PACU and this was discontinued on transition to IVU. ECG on postop day #1 reported sinus rhythm with first-degree AV block and chronic right bundle branch block. Chest x-ray without
pulmonary abnormality. TTE reported EF 37%, AV 18/10mmHg, no AI. Patient will resume Eliquis this evening. Of note, patient reported to RN that his daughter had from an asthmatic event at 2300 on the day of his TAVR. He told the RN he felt
he needed to get this procedure completed. He wants to be discharged soon as possible to make arrangements.
Home medication changes:
none
Discharge Plan
-
Patient Disposition: Home (Routine Discharge)
Discharge Diagnosis/Procedures: TF-TAVR
Condition: Good
Diet: Low Cholesterol and 2 Gram Sodium
Activity: As tolerated and No strenuous activity
Additional Activity: He should not return to work for a minimum of 2 weeks from time of discharge.
Driving Restrictions: No driving for 1 week
Bathing Restrictions: OK to Shower
Others Tests: Please call Dr. Cardoso' office to scheduled a echocardiogram for 30 days after your TAVR
Other Services: Cardiac Rehab
Wound Care: Please do not apply lotions, creams or powders to groin areas. Please monitor for increased pain, redness, swelling or drainage. Notify your doctor if any occur.
Specialty Instructions: Weigh Daily- Call MD for wt gain/loss 3 lbs overnight/5 lbs in 1 week
Activity Restrictions/Additional Instructions:
It is important to receive regular dental care following your TAVR. Please contact your cardiologists or primary care provider for antibiotics to be taken 30-60 minutes prior to dental visit.
Please call to make appointments for Phase II Cardiac Rehab:
[facility]
[address] [place] [address]
[phone] [facility]
Referrals:
CT Transitional Care Nurse [Outside]
Referral Note: The Cardiothoracic Transitional Care Nurse will call you to set up a visit in 1-2 days.
Eliezer Woods MD [Family Provider, Family Practice]
Enrique Cardoso DO [Affiliate, Cardiology] - 03/02/25 2:45 pm
Prescriptions:
Continued
acetaminophen 325 mg Capsule
650 mg PO Q4H PRN (Reason: pain)
atorvastatin 10 mg Tablet
10 mg PO DAILY Qty: 0 0RF
pantoprazole 20 mg Tablet,Delayed Release (Dr/Ec)
20 mg PO DAILY Qty: 0 0RF
ascorbic acid (vitamin C) [Vitamin C] 500 mg Tablet
500 mg PO DAILY Qty: 0 0RF
tamsulosin 0.4 mg Capsule
0.4 mg PO DAILY Qty: 0 0RF
metoprolol succinate 25 mg Tablet Extended Release 24 Hr
25 mg PO BID Qty: 0 0RF
albuterol sulfate 90 mcg/actuation Hfa Aerosol Inhaler
1 puff INHALATION PRN PRN (Reason: COPD) Qty: 0 0RF
tiotropium bromide [Spiriva with HandiHaler] 18 mcg Capsule, W/Inhalation Device
1 cap INHALATION DAILY Qty: 0 0RF
Eliquis 5 mg Tablet
5 mg PO BID Qty: 0 0RF
Breo Ellipta 50-25 mcg/dose Blister With Device
1 ea INHALATION DAILY Qty: 0 0RF
furosemide 40 mg Tablet
40 mg PO DAILY Qty: 0 0RF
Mucinex DM 30-600 mg Tablet Extended Release 12 Hr
2 tab PO Q12H Qty: 0 0RF
Discharge Orders:
Discharge Patient (As Directed); Ordered 02/02/25
Ordered By: Fide Wade
Care Plan Goals
Care Plan Goals:
Problem: Readiness for enhanced knowledge related to diagnosis and treatment plan
Goal: Understand your diagnosis and treatment plan needs, including medications if applicable.
Instructions: Know your diagnosis, underlying causes and treatment plan options, including medications if applicable. Consult with your health care team to learn about your diagnosis and treatment plan, including medications if applicable.
Discharge Date and Time
Print Language: ITALIAN
[2025-02-02 10:36] VITALS: BP 125/71
[2025-02-02 10:41] VITALS: BP 141/85
[2025-02-02 10:46] VITALS: BP 125/71; BP 141/85; PULSE 86; O2SAT 94; O2SAT 96
--- NOTE | 2025-02-02 10:50 | PTCARENOTE ---
Pt agitated this morning, 'all my meds are screwed up, they don't have my breo, so they substituted something else, they are not on time with my pills'. Pt denies pain, VSS. Pt is anxious to be discharged today. He is ambulating in halls and room.
Bilat femoral dsgs D+I.
--- NOTE | 2025-02-02 12:18 | CM ---
Plan is for DC to home today.
Plan is for home w/ CT Transitional Care RN.
--- NOTE | 2025-02-02 13:57 | PTCARENOTE ---
Discharge instructions reviewed with Pt, he expressed understanding.
== END 2025-02-02 14:50 | disposition home or self-care (01) | DRG 266 ==
LOC: IVU 05:00
PROVIDERS: ADMITTING PHYSICIAN Thoracic Surgery (Cardiothoracic Vascular Surgery); CONSULT PHYSICIAN Internal Medicine Cardiovascular Disease; FAMILY PHYSICIAN Family Medicine; OTHER PHYSICIAN Internal Medicine Cardiovascular Disease
PROC: 02RF38Z Replacement of Aortic Valve with Zooplastic Tissue, Percutaneous Approach (ICD-10-PCS; 2025-02-01)
DX: I35.2 Nonrheumatic aortic (valve) stenosis with insufficiency (principal); I50.43 Acute on chronic combined systolic (congestive) and diastolic (congestive) heart failure; I42.9 Cardiomyopathy, unspecified; I25.10 Atherosclerotic heart disease of native coronary artery without angina pectoris; I48.0 Paroxysmal atrial fibrillation; J44.9 Chronic obstructive pulmonary disease, unspecified; I45.10 Unspecified right bundle-branch block; I44.0 Atrioventricular block, first degree; E78.5 Hyperlipidemia, unspecified; Z79.01 Long term (current) use of anticoagulants; Z79.899 Other long term (current) drug therapy; Z85.46 Personal history of malignant neoplasm of prostate; Z87.891 Personal history of nicotine dependence; Z92.3 Personal history of irradiation
CPT/HCPCS: 93308; 33361; 36415; 70355; 71045; 71046; 80048; 80053; 81003; 82248; 83036; 83880; 85025; 85027; 85347; 85610; 85730; 86850; 86900; 86901; 87070; 93005; 93321; 93325; 94640; C1760; C1769; C1894; Q9967